=== PATIENT | male | born 1975 | race Caucasian/White ===

== ENCOUNTER 2017-02-05 08:33 | Emergency (ER) | payer BC ==
[2017-02-05 08:46] VITALS: BP 138/94
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
[2017-02-05] MEDS ORDERED: Amoxicillin/Clavulanate TAB* 875 MG PO SCH (21:00)
== END 2017-02-05 09:20 | disposition home or self-care (01) ==
LOC: UCEAST 08:33
DX: H66.92 Otitis media, unspecified, left ear (principal); Z87.891 Personal history of nicotine dependence
CPT/HCPCS: 99202; G0463